=== PATIENT | male | born 1985 | race Caucasian/White ===

== ENCOUNTER 2019-09-02 18:05 | Emergency (ER) | payer BC ==
[~2019-09-02] VITALS: Ht 188 cm; Wt 113.4 kg
[2019-09-02 18:17] VITALS: BP_SYST 144
--- NOTE | 2019-09-02 18:21 | NUR ---
Patient triaged and placed in waiting room. VSS and patient appears in no acute distress at this time. Accompanied by self, awaiting available bed, and MD notified of need for MSE.
--- NOTE | 2019-09-02 19:55 | NUR ---
Patient to ER bed 06 to gown for evaluation. Side rails up. Report given to PAULINA MCCALL
--- NOTE | 2019-09-02 20:05 | NUR ---
Snehal Thompson PICTURE ENLARGER bedside for pt eval
[2019-09-02] MEDS ORDERED: IBUPROFEN 800 MG TABLET PO ONE (20:15)
--- NOTE | 2019-09-02 20:15 | NUR ---
Pt BIB family to ED seeking evaluation of acute, constant, pain and swelling to the right hand s/p punching his desk approximately 20 minutes prior to arrival
[2019-09-02 20:30] VITALS: BP_SYST 144
--- NOTE | 2019-09-02 20:30 | NUR ---
Patient given written and verbal discharge instructions and verbalizes understanding. ER MD discussed with patient the results and treatment provided. Patient in stable condition. ID arm band removed. Rx of Motrin and Tramadol given. Patient educated on pain management and to follow up with PMD. Pain Scale 0/10 Opportunity for questions provided and answered. Medication side effect fact sheet provided.
== END 2019-09-02 20:30 | disposition home or self-care (01) ==
LOC: SED 18:05
DX: S62.326A Displaced fracture of shaft of fifth metacarpal bone, right hand, initial encounter for closed fracture (principal); Z88.8 Allergy status to other drugs, medicaments and biological substances; W22.8XXA Striking against or struck by other objects, initial encounter; Y93.89 Activity, other specified; Y92.89 Other specified places as the place of occurrence of the external cause; Y99.8 Other external cause status
CPT/HCPCS: 99283

== ENCOUNTER 2021-12-11 08:44 | Emergency (ER) | payer BC ==
[~2021-12-11] VITALS: Ht 188 cm; Wt 127.0 kg
[2021-12-11 08:45] VITALS: BP_SYST 136
--- NOTE | 2021-12-11 08:45 | NUR ---
TRIAGED IN TRIAGE TENT AND BROUGHT IN TO BED #3. DR COLVIN EVALUATED PT IN TENT
--- NOTE | 2021-12-11 08:55 | NUR ---
PT STATES SORE THROAT FOR LAST WEEK, DENIES ANY FEVERS, HAS TAKEN 2 COVID TESTS BOTH BEING NEGATIVE. THROAT IS RED AND PAINFUL.
--- NOTE | 2021-12-11 09:01 | NUR ---
STREP SWAB OBTAINED, PT TOLERATED IT WELL.
--- NOTE | 2021-12-11 09:03 | NUR ---
TAKEN TO RADIOLOGY FOR TESTING.
--- NOTE | 2021-12-11 09:08 | NUR ---
RETURNED FROM RADIOLOGY AMBULATORY, PLACED BACK TO BED #3.
[2021-12-11] MEDS ORDERED: IBUP-1971 PO (09:25)
[2021-12-11] MEDS ORDERED: PRED20TA PO (09:25)
[2021-12-11] MEDS ORDERED: IBUP-1969 PO (09:25)
--- NOTE | 2021-12-11 09:38 | NUR ---
Patient given written and verbal discharge instructions and verbalizes understanding. ER MD discussed with patient the results and treatment provided. Patient in stable condition. ID arm band removed. Rx of PREDNISONE, IBUPROFEN given. Patient educated on pain management and to follow up with PMD. Pain Scale 0/10. Opportunity for questions provided and answered. Medication side effect fact sheet provided.
== END 2021-12-11 09:38 | disposition home or self-care (01) ==
LOC: SED 08:44
DX: J02.9 Acute pharyngitis, unspecified (principal)
CPT/HCPCS: 36415; 70360-TC; 86403; 87081; 99284